=== PATIENT | male | born 1985 | race Caucasian/White ===

== ENCOUNTER 2018-07-28 15:05 | Emergency (ER) | payer SELFPAY ==
[~2018-07-28] VITALS: Ht 165.1 cm; Wt 65.9 kg
[2018-07-28 16:04] VITALS: Ht 165.1 cm; Wt 65.9 kg
--- NOTE | 2018-07-28 16:28 | ERD ---
ER Documentation Chief Complaint Chief Complaint [id number], fr street face down, possible ETOH no distress,speaking full sentence HPI 32-year-old male who presents to the emergency room with possible alcohol intoxication. The patient is occasionally yelling in Belarusian and Mongolian. Patient states that he has not been drinking alcohol. The patient was found laying down outside of a business. The patient is known to EMS is an alcohol abuser. No other report of falls or trauma or injury. Patient is uncooperative. ROS Uncooperative FmHx Family History: No diabetes Physical Exam Vitals Vital Signs Date Temp Pulse Resp B/P (MAP) Pulse Ox O2 O2 Flow FiO2 Time Delivery Rate 07/28/18 98.2 88 18 141/90 100 16:04 (107) Physical Exam General: Disheveled, smells strongly of alcohol Head: Normocephalic, atraumatic. Eyes: Pupils equally reactive, EOM intact ENT: Moist mucous membranes Neck: Supple, no lymphadenopathy Respiratory: Lungs clear bilaterally, no distress Cardiovascular: RRR, no murmurs, rubs, or gallops Abdominal: Soft, non-tender, non-distended, no peritoneal signs : Deferred MSK: No edema, no unilateral swelling, 5/5 strength Neurologic: Limited exam given poor cooperation but moving all extremities Skin: No rash, no evidence of obvious trauma Psych: Normal mood Results 24 hrs Laboratory Tests Test 07/28/18 15:51 Ethyl Alcohol Level 235.0 mg/dl Procedures/[facility] EKG, MONITORS, & DIAGNOSTIC IMAGING: CT brain: No acute process PROCEDURES: None Required LAB INTERPRETATION: * Elevated alcohol level consistent with the patient's intoxication MEDICAL DECISION MAKING: The patient's presentation is consistent with acute alcohol intoxication I have a much lower clinical concern for clinically significant traumatic brain injury, meningitis, significant electrolyte disturbance. The patient's workup will include a medical screening examination as well as observation for sobriety. The patient's presentation is most consistent with acute alcohol intoxication leading to acute encephalopathy. The patient is protecting their airway. The patient has no signs or symptoms concerning for impending respiratory failure and does not require intubation at this time. The patient will require observation in the emergency room to allow for metabolization. Once the patient is able to ambulate on their own accord, navigate the community the patient can be safely discharged from the emergency room. ER COURSE: * CT brain is negative. Patient continues to be protecting his airway * Alcohol level consistent with the patient's level of intoxication OBSERVATION: Observation Note: Indication: Alcohol Intoxication Duration: Greater than 4 hours Family history: As above The patient was observed with serial exams over the above timeframe. The patient continued to be well-appearing, and observation continued without complication. CONSULTATION: None DISPOSITION PLAN: Pending sobriety Departure Diagnosis: Primary Impression: Alcoholic intoxication Condition: Stable SHAHRZAD RG MD Jul 28, 2018 16:28
[2018-07-28] MEDS ORDERED: ACETAMINOPHEN 325 MG TAB PO ONE (17:00)
[2018-07-28] MEDS ORDERED: IBUPROFEN 800 MG TAB PO ONE (20:00)
[2018-07-28 20:26] VITALS: BP 113/72; PULSE 92; RESP 18
== END 2018-07-28 20:44 | disposition home or self-care (01) ==
LOC: E/R 15:05 → EDBD 15:05 → E/R 20:44
DX: F10.129 Alcohol abuse with intoxication, unspecified (principal); R94.02 Abnormal brain scan
CPT/HCPCS: 70450; 72128; 72131; 80307; 82962

== ENCOUNTER 2018-10-02 00:27 | Emergency (ER) | payer SELFPAY ==
[~2018-10-02] VITALS: Ht 152.4 cm; Wt 55.0 kg
[2018-10-02 00:33] VITALS: Ht 152.4 cm; Wt 55.0 kg
--- NOTE | 2018-10-02 05:44 | ERD ---
ER Documentation Chief Complaint Chief Complaint bib ra from [place] for etoh, HPI This is a 32-year-old male who was brought in from the street for alcohol intoxication. History was limited, secondary to patient's intoxication, he e ndorses drinking a lot of alcohol, was belligerent on presentation. Denies fever, denies abdominal pain. ROS All systems reviewed and are negative except as per history of present illness. Allergies Allergies: Coded Allergies: No Known Allergy (Unverified , 07/28/18) PMhx/Soc Hx Alcohol Use: Yes (daily) Hx Substance Use: No (VAHE) Smoking Status: Unknown if ever smoked Physical Exam Vitals Vital Signs Date Temp Pulse Resp B/P (MAP) Pulse Ox O2 O2 Flow FiO2 Time Delivery Rate 10/02/18 98.1 104 19 126/65 100 Room Air 00:45 (85) 10/02/18 98.1 89 19 126/65 100 00:33 (85) Physical Exam Const: Belligerent, intoxicated with EtOH Head: Atraumatic Eyes: Normal Conjunctiva ENT: Normal External Ears, Nose and Mouth. Neck: Full range of motion. No meningismus. Resp: Clear to auscultation bilaterally Cardio: Regular rate and rhythm, no murmurs Abd: Soft, non tender, non distended. Normal bowel sounds Skin: No petechiae or rashes Back: No midline or flank tenderness Ext: No cyanosis, or edema Neur: Awake and alert Psych: Animated, combative, but was able to de-escalate with verbal communication Result Diagram: 10/02/18 0522 Results 24 hrs Laboratory Tests Test 10/02/18 03:43 10/02/18 05:22 Bedside Glucose 103 mg/dL White Blood Count 4.5 10^3/ul Red Blood Count 4.14 10^6/ul Hemoglobin 13.3 g/dl Hematocrit 40.4 % Mean Corpuscular Volume 97.6 fl Mean Corpuscular Hemoglobin 32.1 pg Mean Corpuscular Hemoglobin Concent 32.9 g/dl Red Cell Distribution Width 13.7 % Platelet Count 306 10^3/UL Mean Platelet Volume 8.7 fl Immature Granulocytes % 0.200 % Neutrophils % 47.5 % Lymphocytes % 39.9 % Monocytes % 9.8 % Eosinophils % 2.4 % Basophils % 0.2 % Nucleated Red Blood Cells % 0.0 /100WBC Immature Granulocytes # 0.010 10^3/ul Neutrophils # 2.1 10^3/ul Lymphocytes # 1.8 10^3/ul Monocytes # 0.4 10^3/ul Eosinophils # 0.1 10^3/ul Basophils # 0.0 10^3/ul Nucleated Red Blood Cells # 0.0 10^3/ul Procedures/MDM 32-year-old male presents for evaluation of alcohol intoxication. Patient denies other substances, he will be monitored in the ED until he is clinically sober, and then will require reassessment for any and their underlying psychiatric concerns, however at this time the patient denies any suicidal or homicidal ideations. Patient will be signed out to the oncoming doctor. Departure Diagnosis: Primary Impression: Alcoholic intoxication Complication of substance-induced condition: uncomplicated Qualified Codes: F10.920 - Alcohol use, unspecified with intoxication, uncomplicated Condition: Stable ILYA MANRIQUE MD Oct 02, 2018 05:44
[2018-10-02 09:39] VITALS: BP 125/78; PULSE 80; RESP 14
--- NOTE | 2018-10-02 10:49 | EN ---
Date/Time of Note Date/Time of Note DATE: 10/02/18 TIME: 10:40 ER Progress Note Observation Note Subjective: This patient was signed out to me by Dr. Nguyen at 6 AM pending clinical sobriety. The patient was observed for at least 4 hours under my care. Briefly, this is a 32-year-old male is presenting for alcohol intoxication. The patient was observed until clinical sobriety. On reevaluation, the patient reports left shoulder pain. Family history: As indicated on the initial history and physical of this ER visit Objective: Vital signs reviewed Const: No apparent distress, well-developed, well-nourished Head: Normocephalic, Atraumatic Eyes: Normal Conjunctiva. ENT: Normal External Ears, Nose and Mouth. Neck: No meningismus. Resp: Symmetric chest wall cervantes, no audible wheezes Cardio: Regular rate Abd: Non distended Skin: No petechiae or rashes Back: Deferred Ext: No cyanosis, or edema. Tenderness to palpation of the left shoulder. Full passive range of motion. Neur: Awake and alert, oriented 4. No facial droop. Normal strength and sensation. Psych: Normal mood and affect Assessment: Alcohol intoxication, left shoulder pain MDM The patient's presentation warrants further investigation. Previous medical records, if available, were reviewed. LABS The patient's laboratory testing was obtained and reviewed. No emergent treatment was required unless described below. CBC: No E/o systemic infection or severe anemia or thrombocytopenia Chemistry: No E/o severe acidosis or alkalosis or renal failure or liver disease or diabetic ketoacidosis Tox: E/o alcohol abuse. IMAGING Imaging and Radiology interpretation reviewed. XR L Clavicle FINDINGS: There is normal osseous mineralization and alignment. No fracture or osseous lesion is identified. There is complete separation of the acromioclavicular joint with widening of the coracoclavicular interval.. The soft tissues are unremarkable. IMPRESSION: Left AC joint separation. No fracture. Electronically viewed and signed by .Andrés Arroyo MD, on 10/02/2018 10:16 XR L Shoulder FINDINGS: Glenohumeral joint is intact with anatomic alignment. The articular margins appear normal. No fracture is seen. There is no scapular fracture. There is complete separation of the AC joint. IMPRESSION: AC joint separation. Normal glenohumeral joint. No fracture. Electronically viewed and signed by .Andrés Arroyo MD, MD on 10/02/2018 10:19 TREATMENT/DISPOSITION The patient was treated with Toradol in the emergency department. The patient was provided a sling for symptom control. DISCHARGE The patient presents with alcohol intoxication. He was observed until clinical sobriety. The patient also endorses left shoulder pain. X-rays did not reveal any fract ure dislocation. The patient does appear to have an AC separation. He was provided a sling for comfort. Upon reevaluation of the patient, symptoms have improved. No emergent diagnoses were identified. At this time, I feel that the patient stable for discharge. The patient was instructed to follow-up with a primary care physician in 1-3 days. The patient will be given strict precautions with which to return to the emergency department. Prescriptions: Ibuprofen The patient's blood pressure was elevated at greater than 120/80 while in the emergency department. The patient was otherwise stable with no evidence of hypertensive urgency or emergency. The patient does not require admission for blood pressure control. I have discussed with the patient the risks of hypertension. I have instructed the patient to return to the ER for any new or worsening symptoms including chest pain, shortness of breath, headache, blurred vision, confusion, nausea, vomiting or LOC. I have advised the patient to follow up with the primary care physician for outpatient monitoring and treatment for hypertension in 1-3 days. Disclaimer: Inadvertent spelling and grammatical errors are likely due to EHR/dictation software use and do not reflect on the overall quality of patient care. Note that the electronic time recorded on this note does not necessarily reflect the actual time of the patient encounter. LACY CARNEY MD Oct 02, 2018 10:49
[2018-10-02] MEDS ORDERED: IBUP-1542 PO (11:07)
== END 2018-10-02 11:25 | disposition home or self-care (01) ==
LOC: E/R 00:27
DX: F10.920 Alcohol use, unspecified with intoxication, uncomplicated (principal); R40.2132 Coma scale, eyes open, to sound, at arrival to emergency department; R40.2362 Coma scale, best motor response, obeys commands, at arrival to emergency department; R40.2242 Coma scale, best verbal response, confused conversation, at arrival to emergency department
CPT/HCPCS: 73000; 73030; 80053; 80307; 82962; 85025

== ENCOUNTER 2018-12-25 14:22 | Emergency (ER) | payer MEDICAID ==
[~2018-12-25] VITALS: Ht 154.9 cm; Wt 83.6 kg
[~2018-12-25 14:22] MED LIST: IBUP-1542 PO
[2018-12-25 14:34] VITALS: Ht 154.9 cm; Wt 83.6 kg
[2018-12-25] MEDS ORDERED: IBUPROFEN 600 MG TAB PO ONE (17:00)
[2018-12-25] MEDS ORDERED: IBUPROFEN 800 MG TAB PO ONE (18:30)
[2018-12-25] MEDS ORDERED: IBUP-1542 PO (19:34)
--- NOTE | 2018-12-25 19:36 | ERD ---
ER Documentation Chief Complaint Chief Complaint pain surgery site, poor historian surgery 3mths ago HPI This is a 33-year-old male who is clearly intoxicated presenting with complaints of left hip pain. He had surgery done about 3 months ago on his left hip after trauma. He states that he had the surgery done here, however I have no record of that in his medical records. He states that yesterday he fell onto his left hip and has been having increasing pain. He has been wheelchair-bound after his surgery for unclear reasons. He states that his left leg has been weak since the fall. He is denying any other pain. The pain is aching, worse with movement, mostly in the left hip and radiates to the lower back. No new numbness or tingling. No urinary incontinence or retention. No bowel incontinence. ROS All systems reviewed and are negative except as per history of present illness. Medications Home Meds Active Scripts Ibuprofen* (Motrin*) 600 Mg Tab, 600 MG PO Q6H PRN for PAIN AND OR ELEVATED TEMP, #30 TAB Prov:ALEXANDER YAO MD 12/25/18 Discontinued Scripts Ibuprofen* (Motrin*) 600 Mg Tab, 600 MG PO Q6H PRN for PAIN AND/OR INFLAMMATION, #30 TAB Prov:LACY CARNEY MD 10/02/18 Allergies Allergies: Coded Allergies: No Known Allergy (Unverified , 12/25/18) PMhx/Soc History of Surgery: Yes (Left hip surgery) Hx Alcohol Use: Yes (daily) Hx Substance Use: No (VAHE) Hx Tobacco Use: No (VAHE) Smoking Status: Never smoker FmHx Family History: No diabetes Physical Exam Vitals Vital Signs Date Temp Pulse Resp B/P (MAP) Pulse Ox O2 O2 Flow FiO2 Time Delivery Rate 12/25/18 97.8 98 18 144/81 99 Room Air 19:51 (102) 12/25/18 97.8 104 18 158/104 99 Room Air 18:54 (122) 12/25/18 98.7 143 18 167/96 99 14:34 (119) Physical Exam Const: No acute distress, sleeping in bed but arousable. Disheveled, unkempt Head: Atraumatic Eyes: Normal Conjunctiva ENT: Normal External Ears, Nose and Mouth. Neck: Full range of motion. No meningismus. No C-spine tenderness Resp: Clear to auscultation bilaterally Cardio: Regular rate and rhythm, no murmurs Abd: Soft, non tender, non distended. Normal bowel sounds Skin: No petechiae or rashes Back: Lower lumbar tenderness to palpation without step-offs. Thoracic spine is nontender. Ext: No cyanosis, or edema. Surgical scar well-healed overlying the left hip. There is tenderness over the left hip with no obvious signs of dislocation. All other joints are normal with full range of motion. No bony deformities noted. Neur: Awake and alert, clearly intoxicated with somewhat slurred speech, moving all extremities spontaneously. No facial asymmetry. 4 out of 5 strength in left lower extremity, chronic per patient. 5 out of 5 strength in right lower extremity. 5 out of 5 strength in bilateral upper extremities. Psych: Normal Mood and Affect Results 24 hrs Current Medications Medications Dose Sig/Arnold Start Time Status Last (Trade) Ordered Route PRN Stop Time Admin Dose Reason Admin Ibuprofen 600 mg ONCE ONCE 12/25/18 DC 12/25/18 (Motrin) PO 17:00 18:05 12/25/18 17:01 Ibuprofen 800 mg ONCE ONCE 12/25/18 DC 12/25/18 (Motrin) PO 18:30 18:38 12/25/18 18:31 Procedures/MDM EMERGENT LABS AND DIAGNOSTIC STUDIES: Radiology Results as interpreted by Radiology below were reviewed by Sonya Yao MD: CT abdomen and pelvis shows transverse process fracture at L4. No other acute abnormalities noted Left hip x-ray shows evidence of ischial ORIF., no acute abnormalities Left femur x-ray with no acute abnormalities Initial Nursing notes reviewed. Previous Medical Records requested via the Electronic Health Record. EMERGENCY DEPARTMENT COURSE / MEDICAL DECISION MAKING: This is an intoxicated patient presenting after a fall complaining of left hip pain. X-rays did not show any problems with his left hip but given his L-spine tenderness, CT was done and shows a transverse process fracture. This does not require emergent surgical intervention or surgical spine consult. Patient will require analgesia and rest. He is stable for discharge with continued outpatient follow-up. I have provided a medical screening exam and evaluation. Referral to outpatient behavioral health for follow up is not indicated. The patient is clinically stable for discharge. I have communicated after-visit instructions and plan to the patient. Because patient has been identified as without residence, the hospital policy and process for discharge requirements have been initiated by appropriate hospital staff. Patient's blood pressure was elevated (>120/80) but appears stable without evidence of hypertensive emergency or urgency. The patient was counseled about the risks of hypertension and urged to pursue outpatient monitoring and therapy within a week with their primary care physician. Departure Diagnosis: Primary Impression: Hip pain, left Additional Impression: Fracture of transverse process of lumbar vertebra Encounter type: initial encounter Fracture type: closed Qualified Codes: S32.009A - Unspecified fracture of unspecified lumbar vertebra, initial encounter for closed fracture Condition: Stable Patient Instructions: Hip Contusion, Transverse Spinous Process Fracture Referrals: [facility] Usted se acosta hecho un examen mdico de control que le indica que no est en sergio condicin que requiera tratamiento urgente en el Departamento de Emergencia. Un estudio ms profundo y el tratamiento de rajan condicin pueden esperar sin ningn riesgo hasta que usted sea atendida/o en el consultorio de rajan mdico o sergio cln ica. Es responsabilidad suya arreglar sergio raphael para el seguimiento del jaxson. MANEJO DE CONDICIONES NO URGENTES EN EL FUTURO 1) Si usted tiene un mdico de atencin primaria: Usted debera llamar a rajan mdico de atencin primaria antes de venir al departa mento de emergencia. Despus de las horas de consultorio, rajan doctor o rajan asociado/a est disponible por telfono. El mdico o enfermero de fredy en el servicio telefnico puede asesorarle por luis medio para atender el problema, o jaxson contrario se puede programar sergio raphael. 2) Si usted no tiene un mdico de atencin primaria: Llame al mdico o clnica de referencia que aparece abajo lukasz las horas de consultorio para hacer sergio raphael para que le vean. CLINICAS: [facility] [phone] [facility] [phone] [facility] [phone] [place] [address] [phone] [place] [id number] [phone] [facility] [phone] [address] [facility] . [facility] () Usted se acosta hecho un examen mdico de control que le indica que no est en sergio condicin que requiera tratamiento urgente en el Departamento de Emergencia. Un estudio ms profundo y el tratamiento de rajan condicin pueden esperar sin ningn riesgo hasta que usted sea atendida/o en el consultorio de rajan mdico o sergio cln ica. Es responsabilidad suya arreglar sergio raphael para el seguimiento del jaxson. MANEJO DE CONDICIONES NO URGENTES EN EL FUTURO 1) Si usted tiene un mdico de atencin primaria: Usted debera llamar a rajan mdico de atencin primaria antes de venir al departa mento de emergencia. Despus de las horas de consultorio, rajan doctor o rajan asociado/a est disponible por telfono. El mdico o enfermero de fredy en el servicio telefnico puede asesorarle por luis medio para atender el problema, o jaxson contrario se puede programar sergio raphael. 2) Si usted no tiene un mdico de atencin primaria: Llame al mdico o condado institucions de referencia que aparece abajo lukasz las horas de consultorio para hacer sergio raphael para que le vean. SI USTED NO PUEDE PAGAR PARA NADIR UN MEDICO puede ir a: [facility] [address] [place] [address] [facility] [address] [place] [address] [facility] [address] [place] [address] [facility] [address] [place] [address] ALEXANDER YAO MD Dec 25, 2018 19:36
[2018-12-25 19:51] VITALS: BP 144/81; PULSE 98; RESP 18
== END 2018-12-25 19:52 | disposition home or self-care (01) ==
LOC: E/R 14:22
DX: S32.049A Unspecified fracture of fourth lumbar vertebra, initial encounter for closed fracture (principal); S79.912A Unspecified injury of left hip, initial encounter; W18.39XA Other fall on same level, initial encounter; Y92.9 Unspecified place or not applicable
CPT/HCPCS: 72170; 73510; 73550; 74176; Z7610